=== PATIENT | female | born 1960 | race Caucasian/White ===

== ENCOUNTER → 2020-07-26 11:55 | Outpatient (CLI) | payer OTHER, SELFPAY ==
--- NOTE | 2020-07-26 12:01 | BI_ITS ---
MAMMOGRAPHY - BILATERAL SCREENING REASON FOR EXAM: Female, 60 years old. Routine annual screening examination. PERTINENT HISTORY: Sister with breast cancer. Aunt with breast cancer. TECHNIQUE: Digital bilateral breast pavel (3D mammographic acquisition) in the CC and MLO projections. 2-D mediolateral oblique (MLO) and craniocaudad (CC) views of both breasts were obtained. CAD: Full Field Digital Mammography with Computer Added Detection was performed. COMPARISON: Comparison is made with prior study dated 07/12/2016 and 03/31/2013. FINDINGS: Breast Composition: The breasts are almost entirely fatty. There are no dominant masses or suspicious calcifications. Stable benign-appearing left axillary lymph nodes No other significant abnormalities are identified. There has been no significant change since the prior study. BI/SCRN MAMM (CAD)W/PAVEL BILAT IMPRESSION: Stable bilateral screening mammogram. Yearly follow-up mammogram recommended. (A) ASSESSMENT CATEGORY: BIRADS Category 2: Benign. A letter regarding these results will be sent to the patient by the facility within 30 days. Approximately 10% of breast cancers are not detected by mammography. A normal mammogram should not delay biopsy of a clinically suspicious abnormality. [id number] Electronically Signed: Parihs Sexton MD at 12:59 EDT , Service support ,
== END ==
PROVIDERS: Referring Provider Nurse Practitioner Adult Health; Visit Provider Nurse Practitioner Adult Health
DX: Z12.31 Encounter for screening mammogram for malignant neoplasm of breast (principal)
CPT/HCPCS: 77063; 77067

== ENCOUNTER → 2020-08-03 09:40 | Outpatient (CLI) | payer OTHER, SELFPAY ==
[2020-08-03 10:49] LABS: Absolute Lymphocyte Count 3.35 X10^3/uL (0.83-4.51); Absolute Neutrophil Count 7.4 X10^3/uL (2.0-7.7); Basophil# 0.11 X10^3/uL; Basophil% 0.9 % (0-1); Eosinophil# 0.25 X10^3/uL; Eosinophils% 2.1 % (0-5); Hematocrit 42.7 % (37-47); Hemoglobin 13.6 g/dL (12.0-15.0); Lymphocyte # 3.35 X10^3/ul (0.83-4.51); Lymphocyte % 28.2 % (19-41); Mean Corp Hgb Conc 31.9 g/dL (32-36); Mean Corpuscular Hgb 29.2 pg (27.0-32.0); Mean Corpuscular Volume 91.6 fL (81-99); Mean Platelet Vol. 11.1 fl (6.2-12.0); Monocyte# 0.74 X10^3/uL; Monocyte% 6.2 % (0-10); NRBC Flagged by Analyzer 0 % (0-5); Neutrophil # 7.38 X10^3/uL (2.7-7.7); Neutrophil % 62.2 % (47-70); Platelet Count 422 K/mm3 (150-450); RBC Distribution Width CV 13.2 % (11.6-14.6); RBC Distribution Width SD 43.9 fl (35.1-43.9); Red Blood Count 4.66 M/mm3 (4.2-5.4); White Blood Count 11.9 K/mm3 (4.4-11.0)
[2020-08-03 11:11] LABS: Microalbumin,Random Urine 5.1 mg/L (NO RANGE EST.); Microalbumin:Creatinine Ratio 15.8 mg/g CRE (<30 mg/g CRE)
[2020-08-03 11:30] LABS: ALB/GLOB Ratio 0.9 RATIO (0.9-2.4); AST(SGOT) 15 U/L (15-37); Alanine Aminotransfer ALT/SGPT 26 U/L (13-56); Albumin, Serum 3.7 g/dL (3.2-5.0); Alkaline Phosphatase 109 U/L (45-117); Anion Gap 5 (5-15); BUN 16 mg/dL (7-18); BUN/Creat Ratio 19.9 RATIO (10-20); Calcium,Total 9.1 mg/dL (8.5-10.1); Chloride 108 mmol/L (98-107); EST Glomerular Filtration Rate 77 mL/min (>60); Est Glom Filt Rate - Afr Amer 93 mL/min (>60); Globulin 4.2 g/dL (2.2-4.2); Glucose 108 mg/dL (74-106); Potassium 4.1 mmol/L (3.5-5.1); Protein, Total 7.9 g/dL (6.4-8.2); Sodium Level 140 mmol/L (136-145); Thyroid Stim Hormone (TSH) 1.05 uIU/mL (0.358-3.74)
== END ==
DX: E11.9 Type 2 diabetes mellitus without complications (principal)
CPT/HCPCS: 36415; 80053; 82043; 82570; 84443; 85025

== ENCOUNTER → 2021-11-21 | Outpatient (CLI) | payer OTHER, SELFPAY ==
--- NOTE | 2021-11-21 12:17 | BI_ITS ---
MAMMOGRAPHY - BILATERAL SCREENING REASON FOR EXAM: Female, 61 years old. Routine annual screening examination. PERTINENT HISTORY: Sister with breast cancer. Aunt with breast cancer. TECHNIQUE: Digital bilateral breast pavel (3D mammographic acquisition) in the CC and MLO projections. 2-D mediolateral oblique (MLO) and craniocaudad (CC) views of both breasts were obtained. CAD: Full Field Digital Mammography with Computer Added Detection was performed. COMPARISON: Comparison is made with prior examination dated 07/26/2020 and 07/12/2016. FINDINGS: Breast Composition: The breasts are almost entirely fatty. There are no dominant masses or suspicious calcifications. Stable benign-appearing bilateral axillary lymph nodes. No other significant abnormalities are identified. There has been no significant change since the prior study. BI/SCRN MAMM (CAD)W/PAVEL BILAT IMPRESSION: Stable bilateral screening mammogram. Yearly follow-up mammogram recommended. (A) ASSESSMENT CATEGORY: BIRADS Category 2: Benign. A letter regarding these results will be sent to the patient by the facility within 30 days. Approximately 10% of breast cancers are not detected by mammography. A normal mammogram should not delay biopsy of a clinically suspicious abnormality. [id number] Electronically Signed: Parish Sexton MD at 12:43 EDT ,
== END | disposition home or self-care (01) ==
LOC: OPBI 12:09
PROVIDERS: Visit Provider Family Medicine
DX: Z12.31 Encounter for screening mammogram for malignant neoplasm of breast (principal); Z80.3 Family history of malignant neoplasm of breast
CPT/HCPCS: 77063; 77067

== ENCOUNTER → 2022-10-11 | Outpatient (CLI) | payer OTHER, SELFPAY ==
[2022-10-11 10:44] LABS: Hematocrit 42.1 % (37-47); Hemoglobin 13.4 g/dL (12.0-15.0); Mean Corp Hgb Conc 31.8 g/dL (32-36); Mean Corpuscular Hgb 30.1 pg (27.0-32.0); Mean Corpuscular Volume 94.6 fL (81-99); Mean Platelet Vol. 10.3 fl (6.2-12.0); Platelet Count 385 K/mm3 (150-450); RBC Distribution Width SD 44.4 fl (35.1-43.9); Red Blood Count 4.45 M/mm3 (4.2-5.4)
[2022-10-11 11:24] LABS: ALB/GLOB Ratio 0.9 RATIO (0.9-2.4); AST(SGOT) 17 U/L (15-37); Alanine Aminotransfer ALT/SGPT 26 U/L (13-56); Albumin, Serum 3.9 g/dL (3.2-5.0); Alkaline Phosphatase 108 U/L (45-117); Anion Gap 7 (5-15); BUN 23 mg/dL (7-18); BUN/Creat Ratio 26.1 RATIO (10-20); Calcium,Total 9.1 mg/dL (8.5-10.1); Chloride 106 mmol/L (98-107); Cholesterol 224 mg/dL (200); Creatinine, Serum 0.88 mg/dL (0.55-1.02); EST Glomerular Filtration Rate 69 mL/min (>60); Est Glom Filt Rate - Afr Amer 83 mL/min (>60); Globulin 4.4 g/dL (2.2-4.2); Glucose 150 mg/dL (74-106); High Density Lipoprotein 36 mg/dL; Potassium 4.1 mmol/L (3.5-5.1); Protein, Total 8.3 g/dL (6.4-8.2); Sodium Level 137 mmol/L (136-145); Thyroid Stim Hormone (TSH) 2.14 uIU/mL (0.358-3.74); Triglycerides 565 mg/dL
[2022-10-11 11:43] LABS: Hemoglobin A1c 6.3 % (3.8-5.6)
== END | disposition home or self-care (01) ==
PROVIDERS: Referring Provider Nurse Practitioner Family; Visit Provider Nurse Practitioner Family
DX: I10 Essential (primary) hypertension (principal); E78.5 Hyperlipidemia, unspecified; R73.03 Prediabetes
CPT/HCPCS: 36415; 80053; 80061; 83036; 84443; 85027

== ENCOUNTER → 2024-11-27 | Outpatient (CLI) | payer OTHER, SELFPAY ==
--- OUTSIDE RECORDS SUMMARY | 2024-11-27 16:33 | XMS RPT_ITS | CCD ---
Author Organization [facility] Inform ion Partnership [facility] Care Team Providers Care Airport Maintenance Chief Name Role Phone [facility] Unavailable Thiago Bell Attending Unavailable [facility] Unavailable Nick PEDIATRIC AUDIOLOGIST, Attending Unavailable Nick Nader, Attending [facility] Medications Current Medications Medication Drug Class(es) Dates Sig (Normalized) Sig (Original) aspirin 81 mg delayed release oral tablet (1 source) Platelet Aggregation Inhibitor, Nonsteroidal Anti-inflammatory Drug Start: 1 take 81 mg by mouth once daily Aspirin Active 81 MG PO DAILY September 24, 2020 12:00am atorvastatin 20 mg oral tablet (1 source) HMG-CoA Reductase Inhibitor Start: 1 take 20 mg by mouth once daily Atorvastatin Active 20 MG PO DAILY September 24, 2020 12:00am betamethasone 0.5 mg/ml / clotrimazole 10 mg/ml topical lotion (1 source) Azole Antifungal, Corticosteroid Start: 1 Clotrimazole-Betame thasone Active 1 EACH TOPICAL TWICE A DAY September 24, 2020 12:00am bisoprolol fumarate 2.5 mg / hydroCHLOROthiazide 6.25 mg oral tablet (1 source) Thiazide Diuretic, beta-Adrenergic Radha Start: 1 take 1 tablet by mouth once daily Bisoprolol-Hydrochl orothiazide Active 1 TABLET PO DAILY September 24, 2020 12:00am cholecalciferol 1.25 mg oral capsule (1 source) Vitamin D Start: 1 take 58548 [IU] by mouth every week Cholecalciferol (Vitamin D3) Active 04916 UNIT PO EVERY WEEK September 24, 2020 12:00am loratadine 10 mg oral tablet (1 source) Start: 1 take 10 mg by mouth once daily Loratadine Active 10 MG PO DAILY September 24, 2020 12:00am losartan potassium 25 mg oral tablet (1 source) Angiotensin 2 Receptor Radha Start: take 25 mg by mouth once daily Losartan Active 25 MG PO DAILY September 24, 2020 12:00am Problems Active Problems Problem Classification Problem Date Documented Da te Episodic/Chronic Diabetes mellitus without complication (1 source) Prediabetes; Translations: [Prediabetes] Onset: 04-27-2022 Episodic Disorders of lipid metabolism (1 source) Hyperlipidemia, unspecified; Translations: [Hyperlipidemia, unspecified] Onset: 04-27-2022 Chronic Essential hypertension (1 source) Essential (primary) hypertension; Translations: [Essential (primary) hypertension] Onset: 04-27-2022 Chronic Spondylosis; intervertebral disc disorders; other back problems (1 source) Sciatica, right side; Translations: [Sciatica, right side] Onset: 10-22-2024 Episodic Past or Other Problems Problem Classification Problem Date Documented Da te Episodic/Chronic Other screening for suspected conditions (not mental disorders or infectious disease) (1 source) Encounter for screening mammogram for malignant neoplasm of breast; Translations: [Encounter for screening mammogram for malignant neoplasm of breast] Onset: 11-25-2021 Episodic Results Test Name Value Interpretation Reference Range Facility Basophil percentageOrdered B y: Jessica Romero on 10-11-2022 Bilirubin [Mass/Vol] 0.30 mg/dL 0.20-1.[address] [facility] Comment on above: For patients on eltr ombopag therapy, use of Dimension [place] TBIL is not recommended. Chloride [Moles/Vol] 106 mmol/L 98-[address] [facility] Cholesterol [Mass/Vol] 224 mg/dL <200 [facility] Comment on above: <200 mg/dL Desirable 200-240 mg/dL Borderline >240 mg/dL High Risk Glucose [Mass/Vol] 150 mg/dL 74-106 [facility] Comment on above: Fasting Glucose resu lt greater than or equal to 126 mg/dL suggests DIABETES MELLITUS per A.D.A. criteria. Potassium [Moles/Vol] 4.1 mmol/L 3.5-5.1 [facility] Protein [Mass/Vol] 8.3 g/dL 6.4-8.2 [facility] Sodium [Moles/Vol] 137 mmol/L 136-145 [facility] Triglyceride [Mass/Vol] 565 mg/dL <[address] [facility] Comment on above: The drugs N-Acetylcy steine and Metamizole may falsely depress this assay. TRIGLYCERIDE IS GREATER THAN 400 mg/dL. LDL RESULT IS INVALID AND WILL NOT BE REPORTED.Serum Triglycerides Reference Interval Normal <150 mg/dL Borderline high 150 - 199 mg/dL High 200 - 499 mg/dL Very High > or = 500 mg/dL WBC (Bld) [#/Vol] 14.0 10*3/uL 4.4-11.0 [facility] Blood erythrocytes count (nu mber/volume)Ordered By: Jessica Romero on 10-11-2022 RBC (Bld) [#/Vol] 4.45 10*6/uL 4.2-5.4 [facility] Blood hemoglobin measurement (mass/volume)Ordered By: Jessica Romero on 10-11-2022 Hemoglobin (Bld) [Mass/Vol] 13.4 g/dL 12.0-15.0 [facility] Blood platelet mean volumeOr dered By: Jessica Romero on 10-11-2022 Platelet mean volume (Bld) [Entitic vol] 10.3 fL 6.2-12.0 [facility] Determination of erythrocyte mean corpuscular volume (MCV)Ordered By: Jessica Romero on 10-11-2022 MCV (RBC) [Entitic vol] 94.6 fL 81-[address] [facility] Hematocrit Auto (Bld) [Volum e fraction]Ordered By: Jessica Romero on 10-11-2022 Hematocrit (Bld) [Volume fraction] 42.1 % 37-47 [facility] Laboratory - Chemistry and C hemistry - challengeOrdered By: Jessica Romero on 10-11-2022 ALP [Catalytic activity/Vol] 108 U/L 45-117 [facility] ALT [Catalytic activity/Vol] 26 U/L 13-56 [facility] CO2 [Moles/Vol] 24.0 mmol/L 21.0-32.0 [facility] Globulin (S) [Mass/Vol] 4.4 g/dL 2.2-4.[address] [facility] Urea nitrogen/Creatinine [Mass ratio] 26.1 mg/mg 10-20 [facility] - Hematology and Cell countsOrdered By: Jessica Romero on 10-11-2022 Erythrocyte distribution width (RBC) [Entitic vol] 44.4 fL 35.1-43.9 [facility] Erythrocyte distribution width (RBC) [Ratio] 13.0 % 11.6-14.6 [facility] MCH (RBC) [Entitic mass] 30.1 pg 27.0-32.0 [facility] MCHC Auto (RBC) [Mass/Vol]Or dered By: Jessica Romero on 10-11-2022 MCHC (RBC) [Mass/Vol] 31.8 g/dL 32-36 [facility] No Panel InformationOrdered By: Jessica Romero on 10-11-2022 Estimated GFR (MDRD) Amer 83 mL/min >60 [facility] Comment on above: GFR Calc Estimated GFR (MDRD) Non-Af Amer 69 mL/min >60 [facility] Comment on above: Non- GFR Calc Thyroid Stimulating Hormone (TSH) 2.14 uIU/mL 0.358-3.74 [facility] Platelets bldOrdered By: Milena Romero on 10-11-2022 Platelets (Bld) [#/Vol] 385 10*3/uL 150-450 [facility] Serum or plasma albumin celia urement (mass/volume)Ordered By: Jessica Romero on 10-11-2022 Albumin [Mass/Vol] 3.9 g/dL 3.2-5.0 [facility] Serum or plasma albumin/glob ulin mass ratioOrdered By: Jessica Romero on 10-11-2022 Albumin/Globulin [Mass ratio] 0.9 {ratio} 0.9-2.4 [facility] Serum or plasma calcium celia urement (mass/volume)Ordered By: Jessica Romero on 10-11-2022 Calcium [Mass/Vol] 9.1 mg/dL 8.5-10.1 [facility] Serum or plasma cholesterol in HDL measurement (mass/volume)Ordered By: Jessica Romero on 10-11-2022 Cholesterol in HDL [Mass/Vol] 36 mg/dL >40 [facility] Comment on above: The drugs N-Acetylcy steine and Metamizole may falsely depress this assay. Reference Range HDL <40 mg/dL Low HDL Cholesterol HDL >or= 60 mg/dL High HDL Cholesterol Serum or plasma cholesterol in VLDL measurement (mass/volume)Ordered By: Jessica Romero on 10-11-2022 Cholesterol in VLDL [Mass/Vol] [facility] Comment on above: Test not performed Serum or plasma creatinine m easurement (mass/volume)Ordered By: Jessica Romero on 10-11-2022 Creatinine [Mass/Vol] 0.88 mg/dL 0.55-1.02 [facility] Comment on above: The validity of the calculated GFR & GFRAA in patients over 70 years has not been determined. Clinical correlation is essential. Serum or plasma low density lipoprotein (LDL) cholesterol measurement (mass/volume)Ordered By: Jessica Romero on 10-11-2022 Cholesterol in LDL [Mass/Vol] [facility] Comment on above: Test not performed Serum or plasma urea nitroge n measurement (mass/volume)Ordered By: Jessica Romero on 10-11-2022 Urea nitrogen [Mass/Vol] 23 mg/dL 7-18 [facility] Thin prep Papanicolaou smear with manual screeningOrdered By: Jessica Romero on 10-11-2022 Thin prep Papanicolaou smear with manual screening 17 U/L 1537 [facility] Thin prep Papanicolaou smear with manual screening 7 5-15 [facility] Whole blood hemoglobin A1c/t otal hemoglobin ratio (mass fraction)Ordered By: Jessica Romero on 10-11-2022 HbA1c (Bld) [Mass fraction] 6.3 % 3.8-5.6 [facility] Comment on above: Normal < 5.7 % Predi abetic 5.7 - 6.4 % Diabetic >or= 6.5 % Please note range changes. SCRN MAMM (CAD)W/PAVEL BILATo n 11-21-2021 SCRN MAMM (CAD)W/PAVEL BILAT [facility] Imaging Services [address] [place] [address] SCRN MAMM (CAD)W/PAVEL BILAT MR#: [id number] Acct: [id number] Name: SANDRA SPEAR Rep #: [id number] : 1960 F 61 From: Parish black MD PCP: [facility] Status: REG CLI Study: SCRN MAMM (CAD)W/PAVEL BILAT Date of Exam: 11/12 Exam# [id number] Ordering Dr: Thiago Bell MD MAMMOGRAPHY - BILATERAL SCREENING REASON FOR EXAM: Female, 61 years old. Routine annual screening examination. PERTINENT HISTORY: Sister with breast cancer. Aunt with breast cancer. TECHNIQUE: Digital bilateral breast pavel (3D mammographic acquisition) in the CC and MLO projections. 2-D mediolateral oblique (MLO) and craniocaudad (CC) views of both breasts were obtained. CAD: Full Field Digital Mammography with Computer Added Detection was performed. COMPARISON: Comparison is made with prior examination dated 07/26/2020 and 07/12/2016. FINDINGS: Breast Composition: The breasts are almost entirely fatty. There are no dominant masses or suspicious calcifications. Stable benign-appearing bilateral axillary lymph nodes. No other significant abnormalities are identified. There has been no significant change since the prior study. BI/SCRN MAMM (CAD)W/PAVEL BILAT IMPRESSION: Stable bilateral screening mammogram. Yearly follow-up mammogram recommended. (A) ASSESSMENT CATEGORY: BIRADS Category 2: Benign. A letter regarding these results will be sent to the patient by the facility within 30 days. Approximately 10% of breast cancers are not detected by mammography. A normal mammogram should not delay biopsy of a clinically suspicious abnormality. [id number] Electronically Signed: Parish Sexton MD at 12:43 EDT , CC: Dr. Thiago Bell MD; [facility] External Auditor: Signed Normal [facility] Basic Panelon 07-06-2018 Creatinine mass conc 0.75 mg/dL Normal 0.51-0.95 [facility] Comment on above: Performed By: #### P 8 #### [facility] [address] [place] [address] Urea nitrogen mass conc 12 mg/dL Normal 7-18 [facility] Comment on above: Performed By: #### P 8 #### [facility] [address] [place], [place] [address] Anion gap molar conc 9 mmol/L Normal 8-16 [facility] Comment on above: Performed By: #### P 8 #### [facility] [address] [place], [place] [address] Calcium mass conc 7.7 mg/dL Low 8.5-10.1 [facility] Comment on above: Performed By: #### P 8 #### [facility] [address] [place] [address] CO2 molar conc 25 mmol/L Normal 21-32 [facility] Comment on above: Performed By: #### P 8 #### [facility] [address] [place], [place] [address] Glucose mass conc 126 mg/dL High 70-99 [facility] Comment on above: Performed By: #### P 8 #### [facility] [address] [place] [address] Chloride molar conc 102 mmol/L Normal 98-107 [facility] Comment on above: Performed By: #### P 8 #### [facility] [address] [place] [address] Potassium molar conc 3.2 mmol/L Low 3.5-5.1 [facility] Comment on above: Performed By: #### P 8 #### [facility] [address] [place] [address] Sodium molar conc 133 mmol/L Low 136-145 [facility] Comment on above: Performed By: #### P 8 #### [facility] [address] [place] [address] HCG,Totalon 07-06-2018 HCG Qn m[IU]/mL Normal [facility] Comment on above: Result Comment: Male < or = 1 Non- female 1-3 Gestational Age: 0.2-1 Week 5 - 50 1-2 Weeks 50 - 500 2-3 Weeks 100 - 5000 3-4 Weeks 500 - 65071 4-5 weeks 1000 - 89778 5-6 weeks 15434 - 100,000 6-8 weeks 04966 - 200,000 2-3 months 15556 - 100,000 Performed By: #### H CG #### [facility] [address] [place] [address] Hemogram/Diffon 07-06-2018 Abs Immature Grans 0.09 thou/cmm High 0.00-0.05 [facility] Comment on above: Performed By: #### C BCD1 #### [place] [address] Abs Neut (ANC) 8.89 thou/cmm High 1.56-6.13 [facility] Comment on above: Performed By: #### C BCD1 #### [place] [address] Abs. Baso 0.06 thou/cmm Normal 0.01-0.08 [facility] Comment on above: Performed By: #### C BCD1 #### [place] [address] Abs. Terry 0.98 thou/cmm High 0.27-0.70 [facility] Comment on above: Performed By: #### C BCD1 #### [place] [address] Basophils/100 WBC (Bld) 0.5 % Normal A [facility] Comment on above: Performed By: #### C BCD1 #### [place] [address] Eosinophils #/vol (Bld) 0.09 thou/cmm Normal 0.00-0.31 [facility] Comment on above: Performed By: #### C BCD1 #### [facility] [address] [place], [place] [address] Eosinophils/100 WBC (Bld) 0.8 % Normal [facility] Comment on above: Performed By: #### C BCD1 #### [facility] [address] [place] [address] Erythrocyte distribution width Ratio (RBC) 13.5 % Normal 11.7-14.4 [facility] Comment on above: Performed By: #### C BCD1 #### [facility] [address] [place] [address] Hematocrit Volume Fraction (Bld) 34.0 % Low 34.1-44.9 [facility] Comment on above: Performed By: #### C BCD1 #### [facility] [address] [place] [address] Hemoglobin mass conc (Bld) 11.2 g/dL Normal 11.2-15.7 [facility] Comment on above: Performed By: #### C BCD1 #### [facility] [address] [place] [address] Immature Grans 0.80 % Normal [facility] Comment on above: Performed By: #### C BCD1 #### [facility] [address] [place] [address] Lymphocytes #/vol (Bld) 1.43 thou/cmm Normal 1.18-3.74 [facility] Comment on above: Performed By: #### C BCD1 #### [facility] [address] [place] [address] Lymphocytes/100 WBC (Bld) 12.4 % Normal [facility] Comment on above: Performed By: #### C BCD1 #### [facility] [address] [place] [address] MCH Entitic mass (RBC) 29.6 pg Normal 25.6-32.2 [facility] Comment on above: Performed By: #### C BCD1 #### [facility] [address] [place] [address] MCHC mass conc (RBC) 32.9 % Normal 31.6-34.8 [facility] Comment on above: Performed By: #### C BCD1 #### [facility] [address] [place] [address] MCV Entitic volume (RBC) 89.9 fL Normal 79.4-94.8 [facility] Comment on above: Performed By: #### C BCD1 #### [facility] [address] [place] [address] Monocytes/100 WBC (Bld) 8.5 % Normal [facility] Comment on above: Performed By: #### C BCD1 #### [facility] [address] [place] [address] Platelet mean volume Entitic volume (Bld) 11.2 fL Normal 9.4-12.3 [facility] Comment on above: Performed By: #### C BCD1 #### [facility] [address] [place] [address] Platelets #/vol (Bld) 195 thou/cmm Normal 182-369 [facility] Comment on above: Performed By: #### C BCD1 #### [facility] [address] [place] [address] RBC #/vol (Bld) 3.78 mil/cmm Low 3.93-5.22 [facility] Comment on above: Performed By: #### C BCD1 #### [facility] [address] [place] [address] RDW SD 44.9 fl Normal 36.4-46.3 [facility] Comment on above: Performed By: #### C BCD1 #### [facility] [address] [place] [address] Seg Neutrophil 77.0 % Normal [facility] Comment on above: Performed By: #### C BCD1 #### [facility] [address] [place] [address] WBC #/vol (Bld) 11.54 thou/cmm High 3.98-10.04 [facility] Comment on above: Performed By: #### C BCD1 #### [facility] [address] [place] [address] MDRD GFRon 07-06-2018 GFR/1.73 sq M predicted among non-blacks MDRD vol rate/area (S/P/Bld) mL/min/{1.73_m2} Normal >60mL/min/1.73 m2 [facility] Comment on above: Result Comment: If t he patient is , multiply the result by 1.210. Performed By: #### G FR #### [facility] [address] [place] [id number] Magnesium Bloodon 07-06-2018 Magnesium mass conc 2.2 mg/dL Normal 1.6-2.6 [facility] Comment on above: Performed By: #### M AG #### [place] [address] NURSING PROGon 07-06-2018 Protein mass conc HNO ID: [id number] Author: Vida (Rn) BRENNAN Shi Service: Nursing Author Type: Registered Nurse Type: Nursing Progress Note Filed: 07/06/2018 4:09 AM Note Text: This nurse spoke with Yara PRAJAPATI regarding elevated temperature Tylenole 650 mg given. No new orders received will continue to monitor patient. Normal [facility] PROGRESSon 07-06-2018 Protein mass conc HNO ID: [id number] Author: James Schaefer Service: Hospital Medicine Author Type: Physician Type: Progress Notes Filed: 07/06/2018 3:36 PM Note Text: DEPARTMENT OF HOSPITAL MEDICINE [facility] PROGRESS NOTE- HOSPITAL DAY 0 SERVICE DATE: 07/06/2018 1:15 PM Hospital Medicine/Primary Attending: James Schaefer DO 07/06/18 0015 07/06/18 0405 07/06/18 0610 07/06/18 0815 BP: 151/69 146/63 Pulse: 95 73 Resp: 18 18 Temp: (!) 38.4 ?C (101.1 ?F) 37.9 ?C (100.2 ?F) 36.7 ?C (98.1 ?F) 36.8 ?C (98.2 ?F) TempSrc: Oral Oral SpO2: 94% 93% Weight: Height: Intake/Output 07/05/18 0700 - 07/06/18 0659 Intake (ml) -- Output (ml) 1750 Net (ml) -1750 Temp (24hrs), Av.2 ?C (99 ?F), Min:36.7 ?C (98.1 ?F), Max:38.4 ?C (101.1 ?F) Pain Level: 0 (07/06/18911) CHIEF COMPLAINT: -- Transferred from OSH for Pyelonephritis OVERNIGHT EVENTS: Temp (24hrs), Av.2 ?C (99 ?F), Min:36.7 ?C (98.1 ?F), Max:38.4 ?C (101.1 ?F) -- Spiked fever overnight --> no cultures were obtained with this. INTERVAL HISTORY OF PRESENT ILLNESS: -- Patient seen and examined, chart reviewed -- no complaints. Does feel some improvement REVIEW OF SYSTEMS All other systems negative. Objective PHYSICAL EXAM: GENERAL: Alert, no distress, cooperative SKIN: Skin color, texture, turgor normal. No rashes or lesions. OROPHARYNX: Lips, mucosa, and tongue are normal.Teeth and gums, normal. Oropharynx normal. NECK: No jugulovenous distention, No carotid bruits, Carotid pulse normal contour, Supple LUNGS: Lungs clear to auscultation. Good diaphragmatic excursion. Less CVA tenderness Today CARDIAC: Normal S1 and S2; no rubs, murmurs, or gallops ABDOMEN: Abdomen soft, non-tender, BS normal, No masses or organomegaly EXTREMITIES: Extremities normal, no deformities, edema, clubbing or skin discoloration. Good capillary refill., No ulcers NEURO: Alert, oriented X 3, Gait normal. Non-focal. Reflexes normal and symmetric. Sensation grossly intact., Cranial nerves II-XII intact PULSES: 2+ radial, 2+ carotid Assessment/Plan Active Problems: Pyelonephritis POA: Yes Assessment AND Plan: -- Continue on Ceftriaxone at this time -- Cultures are currently NGTD -- Awaiting 24 hours afebrile and then anticipate change to an oral agent -- Repeat cultures if Febrile again Essential hypertension POA: Yes Assessment AND Plan: -- Will re-institue home medication at time of discharge. -- For now, continue with Carvedilol Cigarette nicotine dependence without complication POA: Unknown Assessment AND Plan: -- Tolerating abstinence Resolved Problems: * No resolved hospital problems. * CODE STATUS: Full PLANNED DISPOSITION: Home Plan of care discussed with: Provider, RN, Patient I spent 35 minutes in the visit, including chart review and discussion with other care providers, with more than 50% of the total [id number] time of the visit in counseling / coordination of care. Diagnostic tests reviewed for today's visit: Most recent labs LABS Component Latest Ref Rng AND Units 07/05/2018 07/06/2018 WBC 3.98 - 10.04 thou/cmm 14.48 (H) 11.54 (H) RBC 3.93 - 5.22 mil/cmm 4.07 3.78 (L) HGB 11.2 - 15.7 g/dL 11.9 11.2 Hematocrit 34.1 - 44.9 % 36.1 34.0 (L) MCV 79.4 - 94.8 fl 88.7 89.9 MCH 25.6 - 32.2 pg 29.2 29.6 MCHC 31.6 - 34.8 % 33.0 32.9 RDW 11.7 - 14.4 % 13.2 13.5 RDW-SD 36.4 - 46.3 fl 43.0 44.9 Platelet Count 182 - 369 thou/cmm 209 195 MPV 9.4 - 12.3 fl 11.4 11.2 Seg Neutrophil % 89.1 77.0 Immature Grans % 0.80 0.80 Lymphocyte % 5.0 12.4 Monocyte % 4.8 8.5 Eosinophil % 0.0 0.8 Basophil % 0.3 0.5 Abs. Neut(Anc) 1.56 - 6.13 thou/cmm 12.90 (H) 8.89 (H) Immature Grans # 0.00 - 0.05 thou/cmm 0.12 (H) 0.09 (H) Abs. Lymph 1.18 - 3.74 thou/cmm 0.72 (L) 1.43 Abs. Terry 0.27 - 0.70 thou/cmm 0.70 0.98 (H) Abs. Eosin 0.00 - 0.31 thou/cmm 0.00 0.09 Abs. Baso 0.01 - 0.08 thou/cmm 0.04 0.06 Color YELLOW Urine Appearance CLOUDY Glucose, Urine Negative mg/dL NEGATIVE Ketones, Urine Negative mg/dL 80 (A) Hemoglobin, Urine Negative MODERATE (A) Protein, Urine Negative mg/dL 100 (A) Nitrites Urine Negative NEGATIVE Bilirubin, Urine Negative see below (A) Specific [place], Ur 1.005 - 1.030 1.028 pH, Urine 5.0 - 8.0 6.0 Urobilinogen, Urine 0.2 - 1.0 EU/dL 1.0 Leukocytes Esterase Negative SMALL (A) RBC, Urine 0.0 - 5.0 /hpf 33.9 (H) WBC, Urine 0.0 - 5.0 /hpf 111.5 (H) EP Cells Urine 0.0 - 5.0 /hpf 1.6 Bacteria, Urine None NONE Hyaline Cast 0.0 - 1.0 /lpf 2.4 (H) Sodium 136 - 145 mEq/L 136 133 (L) Potassium 3.5 - 5.1 mEq/L 2.7 (L) 3.2 (L) Chloride 98 - 107 mEq/L 101 102 CO2 21 - 32 mEq/L 26 25 Glucose 70 - 99 mg/dL 134 (H) 126 (H) BUN 7 - 18 mg/dL 19 (H) 12 Creatinine 0.51 - 0.95 mg/dL 1.02 (H) 0.75 Calcium 8.5 - 10.1 mg/dL 8.0 (L) 7.7 (L) Albumin 3.4 - 5.0 g/dL 2.5 (L) Protein, Total 6.4 - 8.2 g/dL 6.8 AST 15 - 37 U/L 30 ALT 12 - 78 U/L 41 Alkaline Phosphatase 45 - 117 U/L 116 Bilirubin, Total 0.2 - 1.0 mg/dL 0.5 Anion Gap 8 - 16 12 9 Urine Culture No growth eGFR >60mL/min/1.73m2 55.40 >60 Blood Culture No growth at 1 day(s) Magnesium 1.6 - 2.6 mg/dL 2.2 HCG mIU/mL <1.0 RADIOLOGY MEDICATIONS: Current Facility-Administere d Medications Medication Dose Route Frequency - metoclopramide HCl 10 mg injection (REGLAN) 10 mg INTRAVENOUS q 8 H PRN - enoxaparin 40 mg injection (LOVENOX) 40 mg SUBCUTANEOUS DAILY - polyethylene glycol 3350 17 g packet (MIRALAX, GLYCOLAX) 17 g ORAL DAILY - aluminum-magnesium hydroxide-simethicon e 200-200-20 mg/5 mL 30 mL (MAALOX,MYLANTA,MAG- AL PLUS) 30 mL ORAL DAILY PRN - magnesium hydroxide 400 mg/5 mL 30 mL (MOM) 30 mL ORAL DAILY PRN - magnesium hydroxide 400 mg/5 mL 30 mL (MOM) 30 mL ORAL DAILY PRN - magnesium hydroxide 400 mg/5 mL 30 mL (MOM) 30 mL ORAL DAILY PRN - melatonin 3 mg tab(s) 3 mg ORAL DAILY (8 PM) - oxyCODONE-acetaminop hen 5-325 mg 1 tablet (PERCOCET) 1 tablet ORAL q 6 H PRN Or - oxyCODONE-acetaminop hen 5-325 mg 2 tablet (PERCOCET) 2 tablet ORAL q 6 H PRN - morphine 2 mg injection 2 mg INTRAVENOUS q 6 H PRN - acetaminophen 650 mg tab(s) (TYLENOL) 650 mg ORAL q 6 H PRN - potassium chloride ER 40 mEq tab(s) (K-DUR, KLOR-CON) 40 mEq ORAL TID - carvedilol 3.125 mg tab(s) (COREG) 3.125 mg ORAL BID w MEALS - cefTRIAXone iv piggyback 1 g in dextrose (iso-osmotic) 50 mL (ROCEPHIN) 1 g INTRAVENOUS q 24 H Medications Discontinued During This Encounter Medication Reason - morphine 2 mg injection - morphine 2 mg injection - acetaminophen 650 mg tab(s) (TYLENOL) SIGNATURE: James Schaefer DO PATIENT NAME: Sandra Spear DATE: 07/06/2018 TIME: 3:35 PM PAGER/CONTACT #: Alex Cannon NIGHT AND WEEKEND COVERAGE: After 7pm please page [phone] [facility] CR Chest Portableon 07-06-19 19 CR Chest Portable Patient Name: SANDRA SPEAR Diagnostic Radiology Exam Date/Time 07/04/2018 21:59:48 EDT Exam CR Chest Portable Ordering Physician KIRILL MORGAN Accession Number [id number] CPT4 Codes 03533 () Reason For Exam abdominal pain Report Portable chest 07/04/2018: Clinical Information: Abdominal pain. Findings: A single AP portable view of the chest was obtained at 2155 hours. No prior studies for comparison. The trachea is midline. The heart is not enlarged. No focal areas of consolidation or volume loss are seen. There are no pleural effusions. The pulmonary vasculature does not appear congested. The visualized bony structures are intact. Impression: No acute process. Report Dictated on Final Dictating Physician: MD HOSKINS RISA Signed Date and Time: 07/04/2018 10:04 pm Signed by: MD HOSKINS RISA Transcribed Date and Time: 07/04/2018 10:05 [facility] CT Abdomen/Pelvis w/ Contras ton 07-05-2018 CT Abdomen/Pelvis w/ Contrast Patient Name: SANDRA SPEAR CT Exam Date/Time 07/04/2018 22:39:[address] Abdomen/Pelvis w/ IV Contrast (IV Onl Ordering Physician KIRILL OMRGAN Accession Number [id number] CPT4 Codes 44170 (CT Abdomen/Pelvis w/ IV Contrast (IV Onl), Q9967 (CT ISOVUE [id number]) Reason For Exam abdominal pain Report CT ABDOMEN AND PELVIS CLINICAL INDICATION: abdominal pain TECHNIQUE: CT scan of the abdomen and pelvis with IV contrast. Multiplanar reformations. COMPARISON: None FINDINGS: Lung bases are clear. No free intraperitoneal gas seen. Diffuse hepatic steatosis noted. No significant focal hepatic lesion seen. Gallbladder and biliary tree appear unremarkable. Spleen shows no significant abnormality. Adrenal glands show no significant abnormality. Several small right renal cysts. Left kidney shows a delayed nephrogram, patchy areas of enhancement fairly diffusely. No hydronephrosis seen. No renal calculi. There is perinephric stranding on the left. Pancreas shows no significant abnormality. Abdominal aorta is nonaneurysmal. No ureteral calculus. No bowel obstruction. Normal appendix. Sigmoid diverticulosis and descending colon diverticulosis. No diverticulitis seen. Numerous calcified fibroids. IMPRESSION: 1. Left pyelonephritis. No abscess seen. 2. Diffuse hepatic steatosis. Report Dictated on Final Dictating Physician: MD KUMAR JOHN R Signed Date and Time: 07/04/2018 10:55 pm Signed by: MD KUMAR JOHN R Transcribed Date and Time: 07/04/2018 10:56 Normal [facility] Comp Metabolic Panelon 07-05 ALP enzyme act/vol 145 U/L High 38-126 [facility] Comment on above: Performed By: #### H EMDF, CMP3, LIPA4, TROPN, QWNT #### [facility] [address] [place] [address] ALT enzyme act/vol 38 U/L Normal 13-69 [facility] Comment on above: Performed By: #### H EMDF, CMP3, LIPA4, TROPN, QWNT #### [facility] [address] [place] [address] Anion gap molar conc 17 Normal [facility] Comment on above: Performed By: #### H EMDF, CMP3, LIPA4, TROPN, QWNT #### [facility] [address] [place] [address] AST enzyme act/vol 45 U/L Normal 15-46 [facility] Comment on above: Performed By: #### H EMDF, CMP3, LIPA4, TROPN, QWNT #### [facility] [address] [place] [address] Bilirubin mass conc 1.4 mg/dL High 0.2-1.3 [facility] Comment on above: Performed By: #### H EMDF, CMP3, LIPA4, TROPN, QWNT #### [facility] [address] [place] [address] Calcium mass conc 9.0 mg/dL Normal 8.4-10.4 [facility] Comment on above: Performed By: #### H EMDF, CMP3, LIPA4, TROPN, QWNT #### [facility] [address] [place] [address] CO2 molar conc 24 mmol/L Normal 22-30 [facility] Comment on above: Performed By: #### H EMDF, CMP3, LIPA4, TROPN, QWNT #### [facility] [address] [place] [address] Glucose mass conc 160 mg/dL High 70-100 [facility] Comment on above: Performed By: #### H EMDF, CMP3, LIPA4, TROPN, QWNT #### [facility] [address] [place] [address] Protein mass conc 7.8 g/dL Normal 6.3-8.2 [facility] Comment on above: Performed By: #### H EMDF, CMP3, LIPA4, TROPN, QWNT #### [facility] [address] [place] [address] Urea nitrogen mass conc 22 mg/dL High 7-[address] [facility] Comment on above: Performed By: #### H EMDF, CMP3, LIPA4, TROPN, QWNT #### [facility] [address] [place] [address] Creatinine mass conc 1.26 mg/dL High 0.52-1.25 [facility] Comment on above: Performed By: #### H EMDF, CMP3, LIPA4, TROPN, QWNT #### [facility] [address] [place] [address] GFR/1.73 sq M predicted among blacks MDRD vol rate/area (S/P/Bld) 52.6 mL/min/{1.73_m2} Normal >60 [facility] Comment on above: Performed By: #### H EMDF, CMP3, LIPA4, TROPN, QWNT #### [facility] [address] [place] [address] GFR/1.73 sq M predicted among non-blacks MDRD vol rate/area (S/P/Bld) 43.4 mL/min/{1.73_m2} Normal >60 [facility] Comment on above: Result Comment: Sour ce- MDRD equation with creatinine calibration to IDMS(NKDEP) eGFR not recommended for drug dose adjustment Performed By: #### H EMDF, CMP3, LIPA4, TROPN, QWNT #### [facility] [address] [place] [address] Albumin mass conc 4.0 g/dL Normal 3.5-5.0 [facility] Comment on above: Performed By: #### H EMDF, CMP3, LIPA4, TROPN, QWNT #### [facility] [address] [place] [address] Chloride molar conc 93 mmol/L Low 98-107 [facility] Comment on above: Performed By: #### H EMDF, CMP3, LIPA4, TROPN, QWNT #### [facility] [address] [place] [address] Potassium molar conc 2.8 mmol/L Low 3.5-5.1 [facility] Comment on above: Performed By: #### H EMDF, CMP3, LIPA4, TROPN, QWNT #### [facility] [address] [place] [address] Sodium molar conc 134 mmol/L Low 135-145 [facility] Comment on above: Performed By: #### H EMDF, CMP3, LIPA4, TROPN, QWNT #### [facility] [address] [place] [address] Comprehensive Panelon 2018 ALP enzyme act/vol 116 U/L Normal 45-117 [facility] Comment on above: Performed By: #### P 14 #### [facility] [address] [place], [place] [address] Bilirubin mass conc 0.5 mg/dL Normal 0.2-1.0 [facility] Comment on above: Performed By: #### P 14 #### [facility] [address] [place] [address] Protein mass conc 6.8 g/dL Normal 6.4-8.2 [facility] Comment on above: Performed By: #### P 14 #### [facility] [address] [place] [address] Creatinine mass conc 1.02 mg/dL High 0.51-0.95 [facility] Comment on above: Performed By: #### P 14 #### [facility] [address] [place] [address] ALT enzyme act/vol 41 U/L Normal 12-78 [facility] Comment on above: Performed By: #### P 14 #### [facility] [address] [place], [place] [address] AST enzyme act/vol 30 U/L Normal 15-37 [facility] Comment on above: Performed By: #### P 14 #### [facility] [address] [place], [place] [address] Anion gap molar conc 12 mmol/L Normal 8-16 [facility] Comment on above: Performed By: #### P 14 #### [facility] [address] [place], [place] [address] CO2 molar conc 26 mmol/L Normal 21-32 [facility] Comment on above: Performed By: #### P 14 #### [facility] [address] [place], [place] [address] Albumin mass conc 2.5 g/dL Low 3.4-5.0 [facility] Comment on above: Performed By: #### P 14 #### [facility] [address] [place] [address] Calcium mass conc 8.0 mg/dL Low 8.5-10.1 [facility] Comment on above: Performed By: #### P 14 #### [facility] [address] [place] [address] Glucose mass conc 134 mg/dL High 70-99 [facility] Comment on above: Performed By: #### P 14 #### [facility] [address] [place] [address] Urea nitrogen mass conc 19 mg/dL High 7-18 [facility] Comment on above: Performed By: #### P 14 #### [facility] [address] [place] [address] Chloride molar conc 101 mmol/L Normal 98-107 [facility] Comment on above: Performed By: #### P 14 #### [facility] [address] [place] [address] Potassium molar conc 2.7 mmol/L Low 3.5-5.1 [facility] Comment on above: Performed By: #### P 14 #### [facility] [address] [place] [address] Sodium molar conc 136 mmol/L Normal 136-145 [facility] Comment on above: Performed By: #### P 14 #### [facility] [address] [place] [address] Cult Bloodon 07-05-2018 Cult Blood Test performed at [facility] No growth Normal [facility] Comment on above: Performed By: #### C _BLO #### [facility] [address] [place] [address] Cult Urineon 07-05-2018 Cult Urine Test performed at [facility] No growth Normal [facility] Comment on above: Performed By: #### C _URI #### [facility] [address] [place] [address] HISTORY PHYSICALon 9 HISTORY PHYSICAL HNO ID: [id number] Author: James Schaefer Service: Hospital Medicine Author Type: Physician Type: HANDP Filed: 07/05/2018 10:24 AM Note Text: . DEPARTMENT OF HOSPITAL MEDICINE [facility] HISTORY AND PHYSICAL EXAMINATION SERVICE DATE: 07/05/2018 7:20 AM PRIMARY CARE PHYSICIAN: Hailey Lao CNP Subjective CHIEF COMPLAINT: Says over the past 2-3 day she has had increasing abdominal pain, distention, poor appetite, nausea with NBNB emesis. She says she feels generally weak and dizzy described as wanting to pass out. She says she tried cranberry juice without improvement. Severity marked. HPI: This is a 58 year old female who presents witht 2-3 days Of increasing abdominal pain, distention, poor appetite, nausea with NBNB emesis. She states that roughly 9 days ago, she began to notice frequency and painful urination. States did not think anything about this and did not contact PCP. States this escalated to ~ 4 days prior to presentation. 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 Just laid on couch. Hudson miserable and progressed to Left Sided back Pain and extreme Nausea and Vomiting. This finally prompted presentation to [facility] ER where CT A/P shows Left Sided Pyelonephritis . Transferred to [facility] due to insurance issues. FUNCTIONAL STATUS: Independent PAST MEDICAL HISTORY Diagnosis Date - Essential hypertension PAST SURGICAL HISTORY Procedure Laterality Date - EXCISION OF BRAIN TUMOR 1985 FAMILY HISTORY: History reviewed. No pertinent family history. Social History Tobacco Use - Smoking status: Current Every Day Smoker Types: Cigarettes - Smokeless tobacco: Never Used Substance Use Topics - Alcohol use: Not Currently - Drug use: Yes Types: Marijuana Comment: Marijuana - 1 Joint / Day MEDICATIONS Please see reconciled medication list in Epic for details on home medications. ALLERGIES No Known Allergies COMPLETE REVIEW OF SYSTEMS: PAIN ASSESSMENT: CURRENTLY HAVING PAIN; see HPI GENERAL: Weight loss of 25# / 6 months due to Removal of Refined sugars from Diet ; + Fatigue HEENT: Negative for frequent or significant headaches, No changes in hearing or vision, no nose bleeds or other nasal problems NECK: Negative for lumps, goiter, pain and significant neck swelling RESPIRATORY: Negative for cough, hemoptysis, wheezing, COPD, dyspnea or shortness of breath CARDIOVASCULAR: Hypertension GI: Positive for nausea and vomiting and See HPI : POsitive for Dysurina and frequency MUSCULOSKELETAL: Negative for joint pain or swelling, back pain or muscle pain SKIN: Negative for lesions, rash, and itching PSYCH: Negative for sleep disturbance, mood disorder and recent psychosocial stressors HEMATOLOGY/LYMPHOLOG Y: Negative for prolonged bleeding, bruising easily or swollen nodes ENDOCRINE: Negative for cold or heat intolerance, polyuria, polydipsia and goiter NEURO: No history of headaches, syncope, paralysis, seizures or tremors Objective PHYSICAL EXAM: GENERAL: Alert, Mild Distress, Cooperative SKIN: Skin color, texture, turgor normal. No rashes or lesions. HEAD/SINUSES: No significant findings EYES: PERRLA, EOMI OROPHARYNX: Lips, mucosa, and tongue normal. Teeth and gums normal. Oropharynx normal. NECK: No jugulovenous distention, No carotid bruits, Carotid pulse normal contour, Supple LUNGS: Lungs clear to auscultation, Good diaphragmatic excursion CARDIAC: Normal S1 and S2; no rubs, murmurs, or gallops ABDOMEN: Abdomen soft, non-tender, BS normal, No masses or organomegaly and Positive Left Sided CVA Tenderness. None on the right EXTREMITIES: Extremities normal, no deformities, edema, clubbing or skin discoloration. Good capillary refill., No ulcers NEURO: Gait normal. Reflexes normal and symmetric. Sensation grossly intact, Cranial nerves II-XII intact PULSES: 2+ radial, 2+ carotid Patient Vitals for the past 24 hrs: BP Temp Temp src Pulse Resp SpO2 07/05/18 0408 173/96 36.7 ?C (98.1 ?F) Oral 100 18 98 % There is no height or weight on file to calculate BMI. Assessment/Plan Active Problems: Pyelonephritis POA: Yes Essential hypertension POA: Yes Cigarette nicotine dependence without complication POA: Yes Elevated HCG Level - Present on Admission Resolved Problems: * No resolved hospital problems. * Details: -- Admitted for Pyelonephritis from OSH with Imaging confirming diagnosis -- Start on Ceftriaxone, Blood and Urine Cultures are ordered ( Not done at OSH ) -- IV Fluid Hydration -- Analgesia -- Clear Liquid Diet for now given Severity of Nausea and Vomiting -- Advance Diet as she is able to tolerate -- Nicotine Replacement offered and declined -- Elevated HCG in the setting of Post Menopause and no recent Sexual Activity Check Serum Level for Quantification Will need to follow up with PCP / OBGYN for Retesting and additional work up Levels low suggest likely pituitary source Reports no Dysfunctional Uterine Bleeding Weight loss reported has been intentional Advanced Care Planning Purpose of Encounter: Advanced care planning in light of problem not specified> Parties in Attendance: Patient, Dr. James Schaefer, DO, Decisional Capacity: Full Code Status: Yarn Tester Spent on Advance Care Plannin minutes Total time 55 minutes during this encounter, including chart review, discussion with nursing staff and/or other providers, documentation, order management specialist, and [id number] time with patient. Plan of care discussed with: Provider, RN, Patient VTE Prophylaxis: Lovenox 40mg Sub Q Daily Diagnostic tests reviewed for today's visit: Most recent labs and imaging results. LABS Component Latest Ref Rng AND Units 07/05/2018 WBC 3.98 - 10.04 thou/cmm 14.48 (H) RBC 3.93 - 5.22 mil/cmm 4.07 HGB 11.2 - 15.7 g/dL 11.9 Hematocrit 34.1 - 44.9 % 36.1 MCV 79.4 - 94.8 fl 88.7 MCH 25.6 - 32.2 pg 29.2 MCHC 31.6 - 34.8 % 33.0 RDW 11.7 - 14.4 % 13.2 RDW-SD 36.4 - 46.3 fl 43.0 Platelet Count 182 - 369 thou/cmm 209 MPV 9.4 - 12.3 fl 11.4 Seg Neutrophil % 89.1 Immature Grans % 0.80 Lymphocyte % 5.0 Monocyte % 4.8 Eosinophil % 0.0 Basophil % 0.3 Abs. Neut(Anc) 1.56 - 6.13 thou/cmm 12.90 (H) Immature Grans # 0.00 - 0.05 thou/cmm 0.12 (H) Abs. Lymph 1.18 - 3.74 thou/cmm 0.72 (L) Abs. Terry 0.27 - 0.70 thou/cmm 0.70 Abs. Eosin 0.00 - 0.31 thou/cmm 0.00 Abs. Baso 0.01 - 0.08 thou/cmm 0.04 Color YELLOW Urine Appearance CLOUDY Glucose, Urine Negative mg/dL NEGATIVE Ketones, Urine Negative mg/dL 80 (A) Hemoglobin, Urine Negative MODERATE (A) Protein, Urine Negative mg/dL 100 (A) Nitrites Urine Negative NEGATIVE Bilirubin, Urine Negative see below (A) Specific [place], Ur 1.005 - 1.030 1.028 pH, Urine 5.0 - 8.0 6.0 Urobilinogen, Urine 0.2 - 1.0 EU/dL 1.0 Leukocytes Esterase Negative SMALL (A) RBC, Urine 0.0 - 5.0 /hpf 33.9 (H) WBC, Urine 0.0 - 5.0 /hpf 111.5 (H) EP Cells Urine 0.0 - 5.0 /hpf 1.6 Bacteria, Urine None NONE Hyaline Cast 0.0 - 1.0 /lpf 2.4 (H) Sodium 136 - 145 mEq/L 136 Potassium 3.5 - 5.1 mEq/L 2.7 (L) Chloride 98 - 107 mEq/L 101 CO2 21 - 32 mEq/L 26 Glucose 70 - 99 mg/dL 134 (H) BUN 7 - 18 mg/dL 19 (H) Creatinine 0.51 - 0.95 mg/dL 1.02 (H) Calcium 8.5 - 10.1 mg/dL 8.0 (L) Albumin 3.4 - 5.0 g/dL 2.5 (L) Protein, Total 6.4 - 8.2 g/dL 6.8 AST 15 - 37 U/L 30 ALT 12 - 78 U/L 41 Alkaline Phosphatase 45 - 117 U/L 116 Bilirubin, Total 0.2 - 1.0 mg/dL 0.5 Anion Gap 8 - 16 12 eGFR >60mL/min/1.73m2 55.40 RADIOLOGY SIGNATURE: James Schaefer DO PATIENT NAME: Sandra Spear DATE: July 05, 2018 TIME: 7:20 AM PAGER/CONTACT #: [phone] NIGHT AND WEEKEND COVERAGE: After 7pm please page [phone] Normal [facility] Hemogram/Diffon 07-05-2018 Abs Immature Grans 0.12 thou/cmm High 0.00-0.05 [facility] Comment on above: Performed By: #### C BCD1 #### [facility] [address] [place] [address] Abs Neut (ANC) 12.90 thou/cmm High 1.56-6.13 [facility] Comment on above: Performed By: #### C BCD1 #### [place] [address] Abs. Baso 0.04 thou/cmm Normal 0.01-0.08 [facility] Comment on above: Performed By: #### C BCD1 #### [place] [address] Abs. Terry 0.70 thou/cmm Normal 0.27-0.70 [facility] Comment on above: Performed By: #### C BCD1 #### [place] [address] Basophils/100 WBC (Bld) 0.3 % Normal [facility] Comment on above: Performed By: #### C BCD1 #### [place] [address] Eosinophils #/vol (Bld) 0.00 thou/cmm Normal 0.00-0.31 [facility] Comment on above: Performed By: #### C BCD1 #### [place] [address] Eosinophils/100 WBC (Bld) 0.0 % Normal [facility] Comment on above: Performed By: #### C BCD1 #### [facility] [address] [place] [address] Immature Grans 0.80 % Normal [facility] Comment on above: Performed By: #### C BCD1 #### [place] [address] Lymphocytes #/vol (Bld) 0.72 thou/cmm Low 1.18-3.74 [facility] Comment on above: Performed By: #### C BCD1 #### [facility] [address] [place], [place] [address] Lymphocytes/100 WBC (Bld) 5.0 % Normal [facility] Comment on above: Performed By: #### C BCD1 #### [facility] [address] [place] [address] Monocytes/100 WBC (Bld) 4.8 % Normal [facility] Comment on above: Performed By: #### C BCD1 #### [facility] [address] [place] [address] Seg Neutrophil 89.1 % Normal [facility] Comment on above: Performed By: #### C BCD1 #### [facility] [address] [place] [address] Erythrocyte distribution width Ratio (RBC) 13.2 % Normal 11.7-14.4 [facility] Comment on above: Performed By: #### C BCD1 #### [facility] [address] [place] [address] Hematocrit Volume Fraction (Bld) 36.1 % Normal 34.1-44.9 [facility] Comment on above: Performed By: #### C BCD1 #### [facility] [address] [place] [address] Hemoglobin mass conc (Bld) 11.9 g/dL Normal 11.2-15.7 [facility] Comment on above: Performed By: #### C BCD1 #### [facility] [address] [place] [address] MCH Entitic mass (RBC) 29.2 pg Normal 25.6-32.2 [facility] Comment on above: Performed By: #### C BCD1 #### [facility] [address] [place] [address] MCHC mass conc (RBC) 33.0 % Normal 31.6-34.8 [facility] Comment on above: Performed By: #### C BCD1 #### [facility] [address] [place] [address] MCV Entitic volume (RBC) 88.7 fL Normal 79.4-94.8 [facility] Comment on above: Performed By: #### C BCD1 #### [facility] [address] [place] [address] Platelet mean volume Entitic volume (Bld) 11.4 fL Normal 9.4-12.3 [facility] Comment on above: Performed By: #### C BCD1 #### [facility] [address] [place] [address] Platelets #/vol (Bld) 209 thou/cmm Normal 182-369 [facility] Comment on above: Performed By: #### C BCD1 #### [facility] [address] [place] [address] RBC #/vol (Bld) 4.07 mil/cmm Normal 3.93-5.22 [facility] Comment on above: Performed By: #### C BCD1 #### [facility] [address] [place] [address] RDW SD 43.0 fl Normal 36.4-46.3 [facility] Comment on above: Performed By: #### C BCD1 #### [facility] [address] [place] [address] WBC #/vol (Bld) 14.48 thou/cmm High 3.98-10.04 [facility] Comment on above: Performed By: #### C BCD1 #### [facility] [address] [place] [address] Lipaseon 07-05-2018 Lipase enzyme act/vol 26 U/L Normal 23-300 [facility] Comment on above: Performed By: #### H EMDF, CMP3, LIPA4, TROPN, QWNT #### [facility] [address] [place] [address] NURSING PROGon 07-05-2018 Protein mass conc HNO ID: [id number] Author: Vida (Rn) BRENNAN Shi Service: Nursing Author Type: Registered Nurse Type: Nursing Progress Note Filed: 07/05/2018 5:52 AM Note Text: Informed sound physician of pt arrival to floor. Normal [facility] NUTRITIONon 07-05-2018 NUTRITION HNO ID: [id number] Author: Yojana Sanders Service: Nutrition Therapy Author Type: Registered Dietitian Type: Nutrition Filed: 07/05/2018 11:22 AM Note Text: NUTRITION THERAPY SCREENING NOTE SERVICE DATE: 07/05/2018 SERVICE TIME: 11:19 AM NUTRITION CARE PLAN Patient's nutritional intake is adequate. She has been intentionally losing weight and making healthier lifestyle/behavioral changes. Patient is not at risk for malnutrition at this time. Intervention: - Recommend Heart Healthy diet as able to advance diet Discharge Nutrition Recommendations: Diet: Heart healthy Reason for Assessment: MST Per HPI: Sandra Spear is a 58 year old female who presented to [facility] with c/o of increasing abdominal pain, distention, poor appetite, nausea with NBNB emesis x 2-3 days. ACTIVE PROBLEM LIST Pyelonephritis Pyelonephritis PAST MEDICAL HISTORY Diagnosis Date - Essential hypertension Orders Placed This Encounter DIET LIQUID Standing Status: Standing Number of Occurrences: 1 Order Specific Question: Liquid Diet Answer: CLEAR LIQUID Lines and Drains: Peripheral Short Right Wrist 20 Gauge (Active) Peripheral Admission to Hospital Short Right Wrist 20 Gauge (Active) Nutritional Intake Prior to Admission: > or equal to 75% estimated energy needs over the past >1 months Met with patient to discuss nutritional status. Patient reported that she has been trying to lose weight. Recently lost about 25 lbs over the past ~ 5 months. She has been making healthy diet changes including drinking more water and cutting out sugary foods. GI symptoms: none Nutrition Abdominal Exam:, abdomen is soft and bowel sounds are normal ANTHROPOMETRICS Height: 157.5 cm (5' 2") Current Weight: 79.4 kg (175 lb 0.7 oz)(ED weight 07/04/18) Body mass index is 32.02 kg/m?. class 1 obesity Weight has decreased voluntarily by 11.6 kg over 6 months representing 13 % weight change clinically significant, however, patient still eating adequately and wt loss was intentional. Last Wt 07/05/18 : 79.4 kg (175 lb 0.7 oz) 01/2018 - estimated : 91 kg Temperature Max in 24 hours: Temp (24hrs), Av.6 ?C (97.9 ?F), Min:36.5 ?C (97.7 ?F), Max:36.7 ?C (98.1 ?F) BP 150/77 Pulse 97 Temp 36.5 ?C (97.7 ?F) (Oral) Resp 18 SpO2 96% Recent Labs 07/05/18 0808 GLUC 134* BUN 19* CREAT 1.02* NA 136 K 2.7* CHLOR 101 CO2 26 ALB 2.5* HB 11.9 HCT 36.1 WBC 14.48* Potential Signs of Inflammation: leukocytosis, hyperglycemia, hypoalbuminemia and chronic condition ALLERGIES No Known Allergies Current Facility-Administere d Medications Medication Dose Route Frequency - metoclopramide HCl 10 mg injection (REGLAN) 10 mg INTRAVENOUS q 8 H PRN - enoxaparin 40 mg injection (LOVENOX) 40 mg SUBCUTANEOUS DAILY - NaCl 0.9% iv infusion 150 mL/hr INTRAVENOUS CONTINUOUS - polyethylene glycol 3350 17 g packet (MIRALAX, GLYCOLAX) 17 g ORAL DAILY - aluminum-magnesium hydroxide-simethicon e 200-200-20 mg/5 mL 30 mL (MAALOX,MYLANTA,MAG- AL PLUS) 30 mL ORAL DAILY PRN - magnesium hydroxide 400 mg/5 mL 30 mL (MOM) 30 mL ORAL DAILY PRN - magnesium hydroxide 400 mg/5 mL 30 mL (MOM) 30 mL ORAL DAILY PRN - magnesium hydroxide 400 mg/5 mL 30 mL (MOM) 30 mL ORAL DAILY PRN - oxyCODONE-acetaminop hen 5-325 mg 1 tablet (PERCOCET) 1 tablet ORAL q 6 H PRN Or - oxyCODONE-acetaminop hen 5-325 mg 2 tablet (PERCOCET) 2 tablet ORAL q 6 H PRN - morphine 2 mg injection 2 mg INTRAVENOUS q 6 H PRN - acetaminophen 650 mg tab(s) (TYLENOL) 650 mg ORAL q 6 H PRN - potassium chloride ER 40 mEq tab(s) (K-DUR, KLOR-CON) 40 mEq ORAL [facility]ID [facility] in the past year:No results for input(s): CHROMIUM, COPPER, MANGANESE, SELENIUM, VITAMINA, VITB1, VITB2, VITB6, B12, METHYLMAL, VITD25, VITAMINE, VITAK, ZINC, TIBC, FE, ADELA in the last 8784 hours. MNT Billing Type: Initial Assess/15 min 3 units SIGNATURE: Yojana Sanders RD, LD PATIENT NAME: Sandra Spear DATE: July 05, 2018 TIME: 10:10 AM PAGER: [phone] Normal [facility] Troponin Ion 07-05-2018 Troponin I.cardiac mass conc ng/mL Normal 0.000-0.034 [facility] Comment on above: Result Comment: 0.04 6 - 0.400 = Indeterminate > 0.400 = Consider Myocardial Injury Performed By: #### H EMDF, CMP3, LIPA4, TROPN, QWNT #### [facility] [address] [place] [address] Urinalysis Routineon 019 Bacteria LM.HPF #/area (Urine sed) NONE Normal None [facility] Comment on above: Performed By: #### U RIN2 #### [address] [address] Ep Cells Urine 1.6 /hpf Normal 0.0-5.0 [facility] Comment on above: Performed By: #### U RIN2 #### [address] [address] Hyaline Cast 2.4 /lpf High 0.0-1.0 [facility] Comment on above: Performed By: #### U RIN2 #### [facility] [address] [place], [place] [address] RBC,Urine 33.9 /hpf High 0.0-5.0 [facility] Comment on above: Performed By: #### U RIN2 #### [facility] [address] [place], [place] [address] WBC, Urine 111.5 /hpf High 0.0-5.0 [facility] Comment on above: Performed By: #### U RIN2 #### [facility] [address] [place] [address] Appearance Nom (U) CLOUDY Normal [facility] Comment on above: Performed By: #### U RIN2 #### [facility] [address] [place] [address] Bilirubin Urine see below Abnormal Negative [facility] Comment on above: Result Comment: Dete cted (Unable to confirm). Performed By: #### U RIN2 #### [facility] [address] [place] [address] Color Nom (U) YELLOW Normal [facility] Comment on above: Performed By: #### U RIN2 #### [facility] [address] [place] [address] Glucose Ql (U) Negative Normal Negative [facility] Comment on above: Performed By: #### U RIN2 #### [facility] [address] [place] [address] Hemoglobin,Urine MODERATE Abnormal Negative [facility] Comment on above: Performed By: #### U RIN2 #### [facility] [address] [place] [address] Ketone Urine 80 mg/dL Abnormal Negative [facility] Comment on above: Performed By: #### U RIN2 #### [facility] [address] [place] [address] Leukocytes Esterase SMALL Abnormal Negative [facility] Comment on above: Performed By: #### U RIN2 #### [facility] [address] [place] [address] Nitrites Urine Negative Normal Negative [facility] Comment on above: Performed By: #### U RIN2 #### [facility] [address] [place] [address] pH (U) 6.0 [pH] Normal 5.0-8.0 [facility] Comment on above: Performed By: #### U RIN2 #### [facility] [address] [place] [address] Protein mass conc (U) 100 mg/dL Abnormal Negative [facility] Comment on above: Performed By: #### U RIN2 #### [facility] [address] [place] [address] Specific [place], Ur 1.028 Normal 1.005-1.030 [facility] Comment on above: Performed By: #### U RIN2 #### [facility] [address] [place] [address] Urobilinogen,Ur 1.0 EU/dL Normal 0.2-1.0 [facility] Comment on above: Performed By: #### U RIN2 #### [facility] [address] [place] [address] hCG Quantitativeon 9 hCG Quantitative 3 m[IU]/mL Abnormal < 3 [facility] Comment on above: Performed By: #### H EMDF, CMP3, LIPA4, TROPN, QWNT #### [facility] [address] [place] [address] Hemogram w/ Autodiffon 07-04 Abs Baso Cnt 0.0 10*3/uL Normal 0.0-0.2 [facility] Comment on above: Performed By: #### H EMDF, CMP3, LIPA4, TROPN, QWNT #### [facility] [address] [place] [id number] Abs Neutrophile Cnt 14.1 10*3/uL High 1.8-7.0 [facility] Comment on above: Performed By: #### H EMDF, CMP3, LIPA4, TROPN, QWNT #### [facility] [address] [place] [address] Basophils/100 WBC (Bld) 0.3 % Normal 0.0-2.[address] [facility] Comment on above: Performed By: #### H EMDF, CMP3, LIPA4, TROPN, QWNT #### [facility] [address] [place] [address] Eosinophils #/vol (Bld) 0.0 10*3/uL Normal 0.0-0.5 [facility] Comment on above: Performed By: #### H EMDF, CMP3, LIPA4, TROPN, QWNT #### [facility] [address] [place] [address] Eosinophils/100 WBC (Bld) 0.0 % Low 1.0-6.0 [facility] Comment on above: Performed By: #### H EMDF, CMP3, LIPA4, TROPN, QWNT #### [facility] [address] [place] [address] Erythrocyte distribution width Ratio (RBC) 13.5 % Normal 11.5-14.5 [facility] Comment on above: Performed By: #### H EMDF, CMP3, LIPA4, TROPN, QWNT #### [facility] [address] [place] [address] Granulocytes/100 WBC (Bld) 92.2 % High 40.0-80.0 [facility] Comment on above: Performed By: #### H EMDF, CMP3, LIPA4, TROPN, QWNT #### [place] [address] [place] [address] Hematocrit Volume Fraction (Bld) 40.3 % Normal 35.0-47.0 [facility] Comment on above: Performed By: #### H EMDF, CMP3, LIPA4, TROPN, QWNT #### [facility] [address] [place] [address] Hemoglobin mass conc (Bld) 14.0 g/dL Normal 11.7-16.0 [facility] Comment on above: Performed By: #### H EMDF, CMP3, LIPA4, TROPN, QWNT #### [facility] [address] [place] [address] Lymphocytes #/vol (Bld) 0.6 10*3/uL Low 1.0-4.3 [facility] Comment on above: Performed By: #### H EMDF, CMP3, LIPA4, TROPN, QWNT #### [place] [address] [place] [address] Lymphocytes/100 WBC (Bld) 3.6 % Low 20.0-40.0 [facility] Comment on above: Performed By: #### H EMDF, CMP3, LIPA4, TROPN, QWNT #### [place] [address] [place] [id number] MCH Entitic mass (RBC) 30.0 pg Normal 26.0-34.0 [facility] Comment on above: Performed By: #### H EMDF, CMP3, LIPA4, TROPN, QWNT #### [facility] [address] [place] [id number] MCHC mass conc (RBC) 34.9 % Normal 32.0-36.0 [facility] Comment on above: Performed By: #### H EMDF, CMP3, LIPA4, TROPN, QWNT #### [facility] [address] [place] [id number] MCV Entitic volume (RBC) 86.1 fL Normal 79.0-98.0 [facility] Comment on above: Performed By: #### H EMDF, CMP3, LIPA4, TROPN, QWNT #### [facility] [address] [place] [address] Monocytes #/vol (Bld) 0.6 10*3/uL Normal 0.0-0.8 [facility] Comment on above: Performed By: #### H EMDF, CMP3, LIPA4, TROPN, QWNT #### [facility] [address] [place] [address] Monocytes/100 WBC (Bld) 3.9 % Normal 2.0-10.0 [facility] Comment on above: Performed By: #### H EMDF, CMP3, LIPA4, TROPN, QWNT #### [facility] [address] [place] [address] Platelet mean volume Entitic volume (Bld) 9.1 fL Normal 7.4-10.4 [facility] Comment on above: Performed By: #### H EMDF, CMP3, LIPA4, TROPN, QWNT #### [facility] [address] [place] [address] Platelets #/vol (Bld) 246 10*3/uL Normal 140-440 [facility] Comment on above: Performed By: #### H EMDF, CMP3, LIPA4, TROPN, QWNT #### [facility] [address] [place] [id number] RBC #/vol (Bld) 4.68 10*6/uL Normal 3.80-5.20 [facility] Comment on above: Performed By: #### H EMDF, CMP3, LIPA4, TROPN, QWNT #### [facility] [address] [place] [address] WBC #/vol (Bld) 15.3 10*3/uL High 3.6-10.7 [facility] Comment on above: Performed By: #### H EMDF, CMP3, LIPA4, TROPN, QWNT #### [facility] [address] [place] [address] Encounters Encounter Date Encounter Type Care Provider Facility Start: 10-22-2024 ambulatory Jessica Romero [facility] Fa cility:[facility] Start: 10-11-2022 End: 10-11-2022 ambulatory [facility] Work Phone: Start: 10-11-2022 End: 10-11-2022 Patient encounter procedure [facility] Work Phone: Start: 04-27-2022 ambulatory [facility] Facility:[facility] Start: 11-21-2021 End: 11-21-2021 ambulatory [facility] Facility:[facility] Payers Date Payer Category Payer Self-pay 2021 Unknown [id number] Unknown [id number] Unknown [id number] Unknown [facility] [id number] 7ff [id number] Social History Date Type Detail Facility [facility]: [facility] Start: 1960 Sex Assigned At Female [facility] Evaluation note Note Date & Type Note Facility Evaluation note No assessment information availa ble [facility] Work Phone: Summary Purpose Family History No Family History Records FoundNo Family History Records FoundNo Family History Records FoundNo Family History Records FoundNo Family History Records Found Advance Directives No Advanced Directives Records Found Advance Directive Response Recorded Date/ Time Living Will No September 24 1 11:06am Power of Public Policy Mediator No September 24, 021 11:06am Hospital Course Note HNO ID: [id number] Author: Leisa Schaefer Service: Hospital Medicine Author Type: Physician Type: Discharge Summary Filed: 07/07/2018 1:40 PM Note Text: DISCHARGE SUMMARY PATIENT NAME: Sandra Spear ADMISSION DATE: 07/05/2018 DISCHARGE DATE: 07/07/2018 Attending Physician: James Schaefer Code Status: Full Code Highest Readmission Risk Score: 11 The 30 day readmissions risk score is derived from an internally validated risk model which evaluates patient level characteristics, utilization history, medication orders and lab results up until the day of discharge. Patients with a score of 40 or above are considered highest risk for readmission. Specific patient level drivers will be listed at the bottom of the summary. Reason for Hospitalization: 2-3 days of N/V and andominal pain in the setting of left sided pyelonephritis Diagnosis: Active Problems: Essential hypertension Cigarette nicotine dependence without complication Nicotine use disorder, F17.2 Obesity, Class I, (more content not included)... Additional Source Comments INFORMATION SOURCE (unrecogn ized section and content) DATE CREATED AUTHOR 07/16/2018 [facility] DATE CREATED AUTHOR AUTHOR'S ORGANIZ ATION 07/16/2018 [facility] DATE CREATED AUTHOR AUTHOR'S ORGANIZ ATION 07/17/2018 [facility] DATE CREATED AUTHOR AUTHOR'S ORGANIZ ATION 04/28/2022 [facility] DATE CREATED AUTHOR AUTHOR'S ORGANIZ ATION 10/24/2024 [facility] Care Teams (unrecognized sec tion and content) Team Status: Active Member Role Status Dates [facility] Family Provider Active [facility] Primary Care Provider A ctive Team Status: Inactive Member Role Status Dates [facility] Primary Care Provider A ctive Jessica Romero PEDIATRIC AUDIOLOGIST, PEDIATRIC AUDIOLOGIST-C Attending Provider, Referrin g Provider Active Goals (unrecognized section and content) Goals may be documented in a n alternate section FOR RECORDS PERTAINING TO PATIENTS WHO ARE OR HAVE BEEN ENROLLED IN A CHEMICAL DEPENDENCY/SUBSTANCEABUSE PROGRAM, SOME INFORMATION MAY BE OMITTED. This clinical summary was aggregated from multiple sources. Caution should be exercised in using it in the provision of clinical care. This summary normalizes information from multiple sources, and as a consequence, information in this document may materially change the coding, format and clinical context of patient data. In addition, data may be omitted in some cases. CLINICAL DECISIONS SHOULD BE BASED ON THE PRIMARY CLINICAL RECORDS. [facility] [employer] [facility]. provides no warranty or guarantee of the accuracy or completeness of information in this document.
--- NOTE | 2024-11-27 16:38 | RAD_ITS ---
PROCEDURE: THORACIC SPINE 3 VIEWS 11/27/2024 REASON FOR EXAM: LOW BACK PAIN TECHNIQUE: Procedure Code: RADSPT Modality: DX Procedure: THORACIC SPINE 3 VIEWS COMPARISON: None FINDINGS: Vertebrae: There are 12 rib bearing thoracic vertebral bodies. The vertebral body heights and alignment to appear to be within normal limits. There is no spondylolysis or spondylolisthesis. Moderate spondylosis is noted. Discs: The disc spaces appear to be well preserved. Alignment: There is slight increased kyphotic curvature of the thoracic spine. There is no spondylolisthesis. Other: Heart size and configuration are within normal limits. Pulmonary vasculature and hilar structures are unremarkable. Trachea is midline. Arteriosclerotic vascular disease of the aorta is noted. Visualized lung davila are clear. RAD/Thoracic Spine 3 Views IMPRESSION: Moderate spondylosis of the thoracic spine Slight increased kyphotic curvature of the thoracic spine. Arteriosclerotic vascular disease of the aorta. Reading Location: [id number]
--- NOTE | 2024-11-27 16:38 | RAD_ITS ---
PROCEDURE: LUMBAR SPINE 2 OR 3 VIEWS 11/27/2024 REASON FOR EXAM: LOW BACK PAIN TECHNIQUE: Procedure Code: RADSPLL Modality: DX Procedure: LUMBAR SPINE 2 OR 3 VIEWS COMPARISON: None FINDINGS: Vertebrae: There are 5 lumbar-type vertebral bodies below the last set of paired ribs. The vertebral body heights are within normal limits. There is no spondylolysis. No displaced fractures of the sacrum are noted. Discs: There is mild disc space narrowing involving the L4-L5 and L5-S1 disc. There is some bony encroachment on the neural foramina at these levels. Degenerative disc disease is seen involving the T11- T12 disc space Alignment: There is very subtle loss of the normal lordotic lumbar curvature which may be secondary to muscle spasm or strain. There is a proximally 2 mm of anterolisthesis of L3 in relationship to L4, 4 mm of anterolisthesis of L4 in relationship to L5. The remaining vertebral body alignments are within normal limits. Other: Mild spondylosis is noted involving the lower thoracic spine and lumbar spine. Moderate arteriosclerotic vascular disease is seen involving the abdominal aorta. RAD/Lumbar Spine 2 or 3 Views IMPRESSION: Mild spondylosis involving the lower thoracic spine and lumbar spine. Degenerative disc disease is seen involving the L4-L5 and L5-S1 disc. There al so appears to be degenerative disc disease involving the T11-T12 disc. Reading Location: [id number]
[2024-11-27 17:09] LABS: Hematocrit 37.9 % (37-47); Hemoglobin 12.6 g/dL (12.0-15.0); Immature Granulocytes Count 0.080 X10^3/uL (0.0-0.0); Mean Corp Hgb Conc 33.2 g/dL (32-36); Mean Corpuscular Volume 88.1 fL (81-99); Mean Platelet Vol. 10.7 fl (6.2-12.0); NRBC Flagged by Analyzer 0 % (0-5); Platelet Count 408 K/mm3 (150-450); RBC Distribution Width CV 13.0 % (11.6-14.6); RBC Distribution Width SD 41.7 fl (35.1-43.9); Red Blood Count 4.30 M/mm3 (4.2-5.4); White Blood Count 18.4 K/mm3 (4.4-11.0)
[2024-11-27 17:34] LABS: AST(SGOT) 14 U/L (<=31); Alanine Aminotransfer ALT/SGPT 14 U/L (<=34); Albumin, Serum 4.3 g/dL (3.4-4.8); Alkaline Phosphatase 109 U/L (35-104); Anion Gap 16 (5-15); BUN 14 mg/dL (4-19); BUN/Creat Ratio 16.6 RATIO (10-20); Calcium,Total 9.9 mg/dL (7.6-11.0); Carbon Dioxide 20.1 mmol/L (21.0-32.0); Chloride 97 mmol/L (98-108); Cholesterol 152 mg/dL (<=200); Globulin 3.7 g/dL (2.2-4.2); Glucose 188 mg/dL (70-99); Low Density Lipoprotein Calc. 61 mg/dL; Potassium 3.5 mmol/L (3.3-5.1); Triglycerides 234 mg/dL; Very Low Density Lipoprotein 47 mg/dL (5-40); Vitamin D,25 Hydroxy 99.3 ng/mL (30-100); cholesterol:hdl ratio screen 3.42
== END | disposition home or self-care (01) ==
PROVIDERS: Referring Provider Family Medicine; Visit Provider Family Medicine
DX: M54.50 Low back pain, unspecified (principal); N20.0 Calculus of kidney
CPT/HCPCS: 36415; 72072; 72100; 80053; 80061; 82306; 83036; 84439; 84443; 85025; 87086; 87088

== ENCOUNTER → 2024-12-25 | Outpatient (CLI) | payer MEDICARE, SELFPAY ==
--- NOTE | 2024-12-25 17:40 | CT_ITS ---
PROCEDURE: ABDOMEN/PELVIS WITHOUT CONT 12/25/2024 REASON FOR EXAM: KIDNEY STONE TECHNIQUE: Procedure Code: CTABDPEL Modality: CT Procedure: ABDOMEN/PELVIS WITHOUT CONT Noncontrast technique limits evaluation of the abdominal and pelvic viscera. Coronal and Sagittal reconstruction series were provided. One or more dose reduction techniques were used (e.g., Automated exposure control, adjustment of the mA and/or kV according to patient size, use of iterative reconstruction technique). RADIATION DOSE SUMMARY: CTDlvol: 13.6 mGy DLP: 656.39 mGycm COMPARISON: None. FINDINGS: Lung bases: Clear. Liver: Unremarkable. Gallbladder: Unremarkable. No biliary dilation. Spleen: Unremarkable. Pancreas: Unremarkable. Adrenals: Unremarkable. Kidneys: No hydronephrosis. No nephrolithiasis. Bladder: Unremarkable. Reproductive Organs: Calcified leiomyomas. Please note that uterine cancer can not be excluded by this noncontrast CT abdomen and pelvis. Bowel: Extensive colonic diverticulosis with no evidence of acute diverticulitis. Appendix: Normal. Lymph nodes: No lymphadenopathy. Vasculature: No aneurysm. Atherosclerotic calcifications. Peritoneum / Retroperitoneum: No free air or free fluid. Bones: No acute bony abnormalities. Limited study due to lack of IV and oral contrast. CT/Abdomen/Pelvis without Cont IMPRESSION: No acute abdominopelvic abnormalities. No hydronephrosis or nephrolithiasis. Colonic diverticulosis with no evidence of acute diverticulitis. Reading Location: [facility]
== END | disposition home or self-care (01) ==
PROVIDERS: PCP Nurse Practitioner Family; Referring Provider Family Medicine; Visit Provider Family Medicine
DX: N20.0 Calculus of kidney (principal)
CPT/HCPCS: 74176